=== PATIENT | female | born 1990 | race Caucasian/White ===

== ENCOUNTER 2021-08-13 06:55 | Emergency (ER) | payer OTHER ==
[~2021-08-13] VITALS: Ht 162.6 cm; Wt 77.1 kg
[2021-08-13 07:05] VITALS: BP 133/84
[2021-08-13] MEDS ORDERED: ZITHROMAX250 MG PO (07:18)
== END 2021-08-13 07:41 | disposition home or self-care (01) ==
LOC: M.ERS 06:55
DX: J32.9 Chronic sinusitis, unspecified (principal); H92.03 Otalgia, bilateral

== ENCOUNTER 2021-12-08 15:12 | Emergency (ER) | payer OTHER ==
[~2021-12-08] VITALS: Ht 162.6 cm; Wt 73.9 kg
[~2021-12-08 15:12] MED LIST: ZITHROMAX250 MG PO
[2021-12-08 17:00] VITALS: BP 120/56
== END 2021-12-08 17:00 | disposition home or self-care (01) ==
LOC: M.ERS 15:12
DX: J02.9 Acute pharyngitis, unspecified (principal)